=== PATIENT | female | born 1970 | race Two or more races ===

== ENCOUNTER 2025-03-02 10:45 | Emergency (ER) | payer OTHER ==
[~2025-03-02] VITALS: Ht 170.2 cm; Wt 100.7 kg
[2025-03-02 10:47] VITALS: TEMP 97.9
[2025-03-02] MEDS: ALBUTEROL FS 2.5 MG/0.5 ML VIAL.NEB NEB ONE (10:50)
[2025-03-02] MEDS ORDERED: ALTEPLASE IV ONE ×2 (10:50)
[2025-03-02] MEDS ORDERED: SUCCINYLCHOLINE CHLORIDE 20 MG/ML VIAL IV ONE (10:50)
[2025-03-02] MEDS: methylPREDNISolone SOD SUCC 125 MG/2ML VIAL IV ONE (10:50)
[2025-03-02] MEDS ORDERED: methylPREDNISolone SOD SUCC 125 MG/2ML VIAL ONE (10:53)
[2025-03-02] MEDS ORDERED: KETAMINE HCL (500MG/10ML) 50 MG/ML VIAL ONE (10:54)
[2025-03-02 10:57] VITALS: BP 0/0; O2SAT 0
[2025-03-02] MEDS: PROPOFOL 1,000 MG/100 ML BOTTLE IV ONE (11:01)
[2025-03-02] MEDS ORDERED: PROPOFOL 20 ML IV ONE (11:01)
[2025-03-02] MEDS: SUCCINYLCHOLINE CHLORIDE 20 MG/ML VIAL IV ONE (11:02)
[2025-03-02] MEDS: ALTEPLASE BOLUS DOSE IV ONE (11:04)
[2025-03-03] MEDS ORDERED: KETAMINE HCL (500MG/10ML) 50 MG/ML VIAL IV ONE (12:30)
[2025-03-04] MEDS: KETAMINE HCL(200MG/20ML) 10 MG/ML VIAL IV ONE (00:51)
== END 2025-03-02 16:03 ==
LOC: ER 10:49
DX: I46.9 Cardiac arrest, cause unspecified (principal); J96.01 Acute respiratory failure with hypoxia; Z86.718 Personal history of other venous thrombosis and embolism
CPT/HCPCS: 99285; 92950; 31500; 96374; 96375; 82962; J2997; J2919; J3490 ×3; J2704; J0171; J0330; J7040; A4624